=== PATIENT | female | born 1985 | race Caucasian/White ===

== ENCOUNTER 2019-09-07 17:27 | Emergency (ER) | payer BC ==
[2019-09-07] MEDS ORDERED: Sodium Chloride 0.9% 10 ML Syringe FLUSH PRN (17:53)
[2019-09-07] MEDS ORDERED: Ondansetron 4 MG/2 ML SDV IVPUSH ONE (17:54)
[2019-09-07] MEDS ORDERED: Sodium Chloride 0.9% 1,000 ML IV SCH (18:00)
[2019-09-07] MEDS ORDERED: Iopamidol 755 Mg/ML 100 ML Bottle IV ONE (19:21)
--- NOTE | 2019-09-07 20:33 | EDM.PDOC ---
ED HPI GENERAL MEDICAL PROBLEM - General Chief Complaint: Gastrointestinal Problem Stated Complaint: FLUIDS Time Seen by Provider: 09/07/19 17:45 Source of Information: Reports: Patient History Limitations: Reports: No Limitations - History of Present Illness INITIAL COMMENTS - FREE TEXT/NARRATIVE: Patient presented to the ED because of 2 week history of diarrhea which is mucoi d and with associated cramping and occasional nausea. There is no fever or chills or cough and cold symptoms. She also claimed that she has a 10 lb weight loss since her diarrhea started. Bilateral Middle Abdomen Pain Score (Numeric/FACES): 3 - Related Data Allergies Allergy/AdvReac Type Severity Reaction Status Date / Time No Known Allergies Allergy Verified 09/07/19 17:42 Home Meds: Home Meds Potassium Chloride [Klor-Con M20] 40 meq PO TID #6 tab.er 09/07/19 [Rx] Sulfamethoxazole/Trimethoprim [Bactrim Ds Tablet] 1 each PO BID #6 tablet 09/07/19 [Rx] Past Medical History - Past Surgical History GI Surgical History: Reports: Appendectomy, Cholecystectomy Social & Family History - Family History Family Medical History: Noncontributory - Tobacco Use Smoking Status *Q: Never Smoker - Caffeine Use Caffeine Use: Reports: None - Recreational Drug Use Recreational Drug Use: No ED ROS GENERAL - Review of Systems Review Of Systems: See Below Constitutional: Reports: No Symptoms HEENT: Reports: No Symptoms Respiratory: Reports: No Symptoms Cardiovascular: Reports: No Symptoms Endocrine: Reports: No Symptoms GI/Abdominal: Reports: No Symptoms, Abdominal Pain, Nausea, Vomiting Musculoskeletal: Reports: No Symptoms Skin: Reports: No Symptoms Neurological: Reports: No Symptoms ED EXAM, GI/ABD - Physical Exam Exam: See Below Exam Limited By: No Limitations General Appearance: Alert, No Apparent Distress Ears: Normal External Exam, Normal Canal Throat/Mouth: Normal Inspection Head: Atraumatic Neck: Normal Inspection, Supple Respiratory/Chest: No Respiratory Distress, Lungs Clear, Normal Breath Sounds Cardiovascular: Normal Peripheral Pulses, Regular Rate, Rhythm GI/Abdominal Exam: Normal Bowel Sounds, Soft, Other (hyperactive BS) Back Exam: Normal Inspection, Full Range of Motion Course - Vital Signs Text/Narrative:: Labs/CT scan was reviewed with patient and verbalized full understanding NS 1 L bolus refused zofran IV celiac panel-pending stool culture,O/P-pending Klor con 40 meq po x1 Bactrim DS 1 po x1 Last Recorded V/S: Last Vital Signs Temp 36.4 C 09/07/19 17:43 Pulse 85 09/07/19 17:43 Resp 16 09/07/19 17:43 BP 106/85 09/07/19 17:43 Pulse Ox 99 09/07/19 17:43 - Orders/Labs/Meds Orders: Active Orders 24 hr Category Date Time Status Abdomen Pelvis w Cont [CT] Stat Exams 09/07/19 19:04 Taken CELIAC DISEASE PANEL Routine Lab 09/07/19 18:12 Received FOLATE (FOLIC ACID), SERUM Stat Lab 09/07/19 18:12 Received OVA + PARASITE EXAM Stat Lab 09/07/19 18:35 Received STOOL CULTURE Stat Lab 09/07/19 18:35 Received VITAMIN D, 25-HYDROXY Stat Lab 09/07/19 18:12 Received Sodium Chloride 0.9% [Normal Saline] 1,000 ml Med 09/07/19 18:00 Active IV ASDIRECTED Sodium Chloride 0.9% [Saline Flush] Med 09/07/19 17:53 Active 10 ml FLUSH ASDIRECTED PRN Saline Lock Insert [OM.PC] Routine Oth 09/07/19 17:53 Ordered Medication Orders Sodium Chloride (Normal Saline) 1,000 mls @ 999 mls/hr IV ASDIRECTED IRA Last Admin: 09/07/19 18:15 Dose: 999 mls/hr Documented by: CARINA Sodium Chloride (Saline Flush) 10 ml FLUSH ASDIRECTED PRN PRN Reason: Keep Vein Open Last Admin: 09/07/19 18:15 Dose: 10 ml Documented by: CARINA Labs: Laboratory Tests 09/07/19 09/07/19 09/07/19 Range/Units 18:12 18:12 18:12 WBC 9.4 (4.5-12.0) X10-3/uL RBC 4.69 (3.23-5.20) x10(6)uL Hgb 13.3 (11.5-15.5) g/dL Hct 41.7 (30.0-51.3) % MCV 88.9 (80-96) fL MCH 28.4 (27.7-33.6) pg MCHC 32.0 L (32.2-35.4) g/dL RDW 12.4 (11.5-15.5) % Plt Count 377 H (125-369) X10(3)uL MPV 8.2 (7.4-10.4) fL Add Manual Diff Yes Neutrophils % (Manual) 60 (46-82) % Band Neutrophils % 9 H (0-6) % Lymphocytes % (Manual) 19 (13-37) % Monocytes % (Manual) 9 (4-12) % Eosinophils % (Manual) 2 (0-5) % Metamyelocytes % 1 H (0-0) % Sodium 139 (135-145) mmol/L Potassium 3.3 L (3.5-5.3) mmol/L Chloride 102 (100-110) mmol/L Carbon Dioxide 26 (21-32) mmol/L BUN 9 (7-18) mg/dL Creatinine 0.9 (0.55-1.02) mg/dL Est Cr Clr Drug Dosing 84.34 mL/min Estimated GFR (MDRD) > 60 (>60) BUN/Creatinine Ratio 10.0 (9-20) Glucose 212 H (80-116) mg/dL Calcium 8.5 L (8.6-10.2) mg/dL Total Bilirubin 0.6 (0.1-1.3) mg/dL AST 17 (5-25) IU/L ALT 23 (12-36) U/L Alkaline Phosphatase 64 (56-112) IU/L Total Protein 6.9 (6.0-8.0) g/dL Albumin 3.2 L (3.5-5.2) g/dL Globulin 3.7 g/dL Albumin/Globulin Ratio 0.9 Amylase 40 (25-115) U/L Lipase 97 (73-393) U/L Vitamin B12 (193-986) pg/mL Urine Color (YELLOW) Urine Appearance (CLEAR) Urine pH (5.0-6.5) Ur Specific [place] (1.010-1.025) Urine Protein (NEGATIVE) mg/dL Urine Glucose (UA) (NORMAL) mg/dL Urine Ketones (NEGATIVE) mg/dL Urine Occult Blood (NEGATIVE) Urine Nitrite (NEGATIVE) Urine Bilirubin (NEGATIVE) Urine Urobilinogen (NEGATIVE) mg/dL Ur Leukocyte Esterase (NEGATIVE) Urine RBC (0-5) Urine WBC (0-5) Ur Squamous Epith Cells (NS,R,O) Urine Bacteria (NS) Urine Mucus (NS) Urine HCG, Qual (NEGATIVE) 09/07/19 09/07/19 09/07/19 Range/Units 18:12 18:35 18:35 WBC (4.5-12.0) X10-3/uL RBC (3.23-5.20) x10(6)uL Hgb (11.5-15.5) g/dL Hct (30.0-51.3) % MCV (80-96) fL MCH (27.7-33.6) pg MCHC (32.2-35.4) g/dL RDW (11.5-15.5) % Plt Count (125-369) X10(3)uL MPV (7.4-10.4) fL Add Manual Diff Neutrophils % (Manual) (46-82) % Band Neutrophils % (0-6) % Lymphocytes % (Manual) (13-37) % Monocytes % (Manual) (4-12) % Eosinophils % (Manual) (0-5) % Metamyelocytes % (0-0) % Sodium (135-145) mmol/L Potassium (3.5-5.3) mmol/L Chloride (100-110) mmol/L Carbon Dioxide (21-32) mmol/L BUN (7-18) mg/dL Creatinine (0.55-1.02) mg/dL Est Cr Clr Drug Dosing mL/min Estimated GFR (MDRD) (>60) BUN/Creatinine Ratio (9-20) Glucose (80-116) mg/dL Calcium (8.6-10.2) mg/dL Total Bilirubin (0.1-1.3) mg/dL AST (5-25) IU/L ALT (12-36) U/L Alkaline Phosphatase (56-112) IU/L Total Protein (6.0-8.0) g/dL Albumin (3.5-5.2) g/dL Globulin g/dL Albumin/Globulin Ratio Amylase (25-115) U/L Lipase (73-393) U/L Vitamin B12 1020 H (193-986) pg/mL Urine Color Yellow (YELLOW) Urine Appearance Slightly cloudy (CLEAR) Urine pH 5.0 (5.0-6.5) Ur Specific [place] 1.020 (1.010-1.025) Urine Protein Negative (NEGATIVE) mg/dL Urine Glucose (UA) Normal (NORMAL) mg/dL Urine Ketones 50 H (NEGATIVE) mg/dL Urine Occult Blood Negative (NEGATIVE) Urine Nitrite Negative (NEGATIVE) Urine Bilirubin Negative (NEGATIVE) Urine Urobilinogen Normal (NEGATIVE) mg/dL Ur Leukocyte Esterase Small H (NEGATIVE) Urine RBC 0-5 (0-5) Urine WBC 0-5 (0-5) Ur Squamous Epith Cells Few H (NS,R,O) Urine Bacteria Few H (NS) Urine Mucus Few H (NS) Urine HCG, Qual Negative (NEGATIVE) Meds: Medications Generic Name Dose Route Start Last Admin Trade Name Freq PRN Reason Stop Dose Admin Sodium Chloride 1,000 mls @ 999 mls/hr 09/07/19 18:00 09/07/19 18:15 Normal Saline IV 999 mls/hr ASDIRECTED IRA Administration Sodium Chloride 10 ml 09/07/19 17:53 09/07/19 18:15 Saline Flush FLUSH 10 ml ASDIRECTED PRN Administration Keep Vein Open Discontinued Medications Generic Name Dose Route Start Last Admin Trade Name Freq PRN Reason Stop Dose Admin Iopamidol 69 ml 09/07/19 19:21 09/07/19 19:42 Isovue-370 (76%) IV 09/07/19 19:22 69 ml . DIRECTED ONE Administration Ondansetron HCl 4 mg 09/07/19 17:54 Zofran IVPUSH 09/07/19 17:55 ONETIME ONE Departure - Departure Time of Disposition: 20:30 Disposition: Home, Self-Care 01 Condition: Good Clinical Impression: Diarrhea, Hypokalemia, UTI (urinary tract infection) - Discharge Information Prescriptions: Sulfamethoxazole/Trimethoprim [Bactrim Ds Tablet] 1 each PO BID #6 tablet Potassium Chloride [Klor-Con M20] 40 meq PO TID #6 tab.er Instructions: Diarrhea, Adult, Hypokalemia Referrals: PCP,None [Primary Care Provider] - Forms: ED Department Discharge Additional Instructions: please read discharge instructions on diarrhea frequent hand washing increase oral fluids at least 2 liters a day imodium, take 2 tablets every 6 hours until your diarrhea is gone follow up after a week the result of the celiac disease panel that I ordered as well as the stool culture Sepsis Event Note (ED) - Evaluation Sepsis Screening Result: No Definite Risk - Focused Exam Vital Signs: Vital Signs Temp Pulse Resp BP Pulse Ox 09/07/19 17:43 36.4 C 85 16 106/85 99 - My Orders Last 24 Hours: My Active Orders 09/07/19 17:53 Sodium Chloride 0.9% [Saline Flush] 10 ml FLUSH ASDIRECTED PRN Saline Lock Insert [OM.PC] Routine 09/07/19 18:00 Sodium Chloride 0.9% [Normal Saline] 1,000 ml IV ASDIRECTED 09/07/19 18:12 CELIAC DISEASE PANEL Routine FOLATE (FOLIC ACID), SERUM Stat VITAMIN D, 25-HYDROXY Stat 09/07/19 18:35 OVA + PARASITE EXAM Stat STOOL CULTURE Stat 09/07/19 19:04 Abdomen Pelvis w Cont [CT] Stat - Assessment/Plan Last 24 Hours: My Active Orders 09/07/19 17:53 Sodium Chloride 0.9% [Saline Flush] 10 ml FLUSH ASDIRECTED PRN Saline Lock Insert [OM.PC] Routine 09/07/19 18:00 Sodium Chloride 0.9% [Normal Saline] 1,000 ml IV ASDIRECTED 09/07/19 18:12 CELIAC DISEASE PANEL Routine FOLATE (FOLIC ACID), SERUM Stat VITAMIN D, 25-HYDROXY Stat 09/07/19 18:35 OVA + PARASITE EXAM Stat STOOL CULTURE Stat 09/07/19 19:04 Abdomen Pelvis w Cont [CT] Stat
[2019-09-07] MEDS ORDERED: Sulfamethoxazole/Trimethoprim 800-160 MG Tab PO ONE (20:58)
[2019-09-07] MEDS ORDERED: Potassium Chloride 20 MEQ Tab.ER PO ONE (21:01)
== END 2019-09-07 21:15 | disposition home or self-care (01) ==
LOC: FB.ED 17:27
DX: E87.6 Hypokalemia (principal); R19.7 Diarrhea, unspecified; N39.0 Urinary tract infection, site not specified
CPT/HCPCS: 74177; 80053; 81001; 81025; 82150; 82306; 82607; 82746; 82784; 83516; 83690; 85025; 86255; 87045; 87046; 87177; 87209; 87427; 96360; 99284; A9270; J7030; Q9967; J2405